=== PATIENT | female | born 1985 | race Caucasian/White ===

== ENCOUNTER 2019-08-18 16:14 | Emergency (ER) | payer BC, OTHER ==
[2019-08-18] MEDS ORDERED: ONDANSETRON ODT 4 MG TAB (6 TAB/ER DISP) PO PRN (16:47)
[2019-08-18] MEDS ORDERED: METRONIDAZOLE 500 MG TABLET PO ONE (16:47)
[2019-08-18] MEDS ORDERED: AZITHROMYCIN 250 MG TABLET PO ONE (16:47)
[2019-08-18] MEDS ORDERED: EMTRICITABINE/TENOFOVIR 200-300 MG TAB (3 TAB/ER DISP) PO PRN (16:48)
[2019-08-18] MEDS ORDERED: CEFTRIAXONE INJ 250 MG VIAL IM ONE (16:48)
[2019-08-18] MEDS ORDERED: LIDOCAINE 1% INJ-PF (10 MG/ML) 30 ML SDV IM ONE (16:48)
[2019-08-18] MEDS ORDERED: RALTEGRAVIR 400 MG TAB (6 TAB/ER DISP) PO PRN (16:48)
[2019-08-18 17:19] LABS: BACTERIA (WET MOUNT) 3+ BACTERIA SEEN; EPITHELIALS (WET MOUNT) 3+ EPITHELIALS SEEN; T.VAGINALIS (WET MOUNT) NO TRICHOMONAS SEEN; WBCS (WET MOUNT) FEW WBCS SEEN; YEAST (WET MOUNT) NO YEAST SEEN
[2019-08-18 17:35] LABS: APPEARANCE,URINE CLEAR; BILIRUBIN,URINE NEGATIVE (NEGATIVE); COLOR,URINE YELLOW; GLUCOSE, URINE NEGATIVE (NEGATIVE); KETONES,URINE TRACE mg/dL (NEGATIVE); LEUKOCYTE ESTERASE,URINE NEGATIVE (NEGATIVE); NITRITE,URINE NEGATIVE (NEGATIVE); PROTEIN,URINE 30 mg/dL (NEGATIVE); URINE SPECIFIC GRAVITY 1.028; UROBILINOGEN,URINE NEGATIVE mg/dL (<2.0)
--- NOTE | 2019-08-18 17:42 | ER Document Report ---
HPI - HPI Time Seen by Provider: 08/18/19 16:38 Pain Level: 0 Notes: Otherwise healthy 34-year-old female presenting to the emergency department with request for STD testing as well as empiric treatment. Patient reports she had sexual intercourse with a partner last night. She is concerned because she states that this partner has very promiscuous sexual behaviors. She denies any symptoms. - REPRODUCTIVE Reproductive: DENIES: : Past Medical History - General Information source: Patient - Social History Smoking Status: Never Smoker Chew tobacco use (# tins/day): No Frequency of alcohol use: Social Drug Abuse: None Family History: Reviewed & Not Pertinent Patient has suicidal ideation: No Patient has homicidal ideation: No - Medical History Medical History: Negative Surgical Hx: Negative - Immunizations Immunizations up to date: Yes Vertical Provider Document - CONSTITUTIONAL Notes: PHYSICAL EXAMINATION: GENERAL: Well-appearing, well-nourished and in no acute distress. HEAD: Atraumatic, normocephalic. EYES: Pupils equal round extraocular movements intact, conjunctiva are normal. ENT: Nares patent NECK: Normal range of motion LUNGS: No respiratory distress Musculoskeletal: Normal range of motion NEUROLOGICAL: Normal speech, normal gait. PSYCH: Normal mood, normal affect. SKIN: Warm, Dry, normal turgor, no rashes or lesions noted. - INFECTION CONTROL TRAVEL OUTSIDE OF THE [place] IN LAST 30 DAYS: No Course - Re-evaluation Re-evalutation: Patient provided urine samples and also provided samples for chlamydia and gonorrhea testing. Test results pending. Patient requesting empiric treatment for chlamydia, gonorrhea, trichomonas as well as HIV prophylaxis. This was discussed extensively with the patient, patient states she is going to the health department tomorrow for HIV testing but would like the option of having the medication prescribed her. Prescription will be provided. - Vital Signs Vital signs: Temp Pulse Resp BP Pulse Ox 98.5 F 77 16 128/80 H 100 08/18/19 16:29 08/18/19 16:29 08/18/19 16:29 08/18/19 16:29 08/18/19 16:29 Discharge - Discharge Clinical Impression: STD exposure Condition: Stable Disposition: HOME, SELF-CARE Additional Instructions: You were seen in the emergency department for possible STD exposure. You were tested for chlamydia, gonorrhea and trichomonas. These test are pending. You were treated for them. You have opted to take prophylactic treatment for HIV. You will need to see the health department on Tuesday for HIV testing as you will need follow-up. Prescriptions: Raltegravir Potassium [Isentress 400 mg Tablet] 400 mg PO BID #56 tablet Emtricitabine/Tenofovir (Tdf) [Truvada 100 mg-150 mg Tablet] 2 each PO DAILY #56 tablet Ref[facility]: [facility] [Outside] - Follow up as needed
[2019-08-18 18:23] VITALS: BP 128/72
[2019-08-18 18:48] LABS: CHLAM PCR NOT DETECTED (NOT DETECT)
== END 2019-08-18 18:23 | disposition home or self-care (01) ==
LOC: ER 16:14
DX: Z20.2 Contact with and (suspected) exposure to infections with a predominantly sexual mode of transmission (principal)
CPT/HCPCS: 99283; 96372; 87210; 81001; 87491; 87591; J3490; J0696